=== PATIENT | female | born 1940 | race Caucasian/White ===

== ENCOUNTER 2018-06-07 15:26 | Inpatient (IN) | payer MEDICARE ==
[2018-06-07] MEDS ORDERED: SODIUM CHLORIDE 0.9% 1,000 ML IV STA (15:51)
[2018-06-07 16:12] LABS: Basophils % (A) 0 %; Eosinophils # (A) 0.1 k/uL (0-0.7); Eosinophils % (A) 1 %; HCT 41.8 % (34.0-46.0); HGB 13.5 gm/dL (11.4-16.0); Lymphocytes # (A) 1.3 k/uL (1.0-4.8); Lymphocytes % (A) 13 %; MCH 32.2 pg (25.0-35.0); MCHC 32.3 g/dL (31.0-37.0); MCV 99.8 fL (80.0-100.0); Mean Platelet Volume 7.2; Monocytes # (A) 0.5 k/uL (0-1.0); Monocytes % (A) 5 %; Neutrophils # (A) 8.1 k/uL (1.3-7.7); Neutrophils % (A) 80 %; Platelet Count 231 k/uL (150-450); RBC 4.19 m/uL (3.80-5.40); RDW 12.1 % (11.5-15.5); WBC 10.1 k/uL (3.8-10.6)
[2018-06-07 16:21] LABS: ALT 25 U/L (9-52); AST 28 U/L (14-36); Albumin 3.4 g/dL (3.5-5.0); Alkaline Phosphatase 81 U/L (38-126); Anion Gap 8 mmol/L; Blood Urea Nitrogen 16 mg/dL (7-17); Calcium 9.1 mg/dL (8.4-10.2); Carbon Dioxide 23 mmol/L (22-30); Chloride 110 mmol/L (98-107); Glucose 102 mg/dL (74-99); Potassium 3.9 mmol/L (3.5-5.1); Sodium 141 mmol/L (137-145); Total Bilirubin 0.8 mg/dL (0.2-1.3); Total Protein 6.5 g/dL (6.3-8.2)
--- NOTE | 2018-06-07 16:23 | ED ---
General Adult HPI - General Chief complaint: Extremity Injury, Lower Stated complaint: Left Hip FX Time Seen by Provider: 06/07/18 15:42 Source: EMS, RN notes reviewed Mode of arrival: EMS Limitations: physical limitation - History of Present Illness Initial comments: Patient 77-year-old female presented to the emergency room today with a chief complaint of left-sided hip fracture. She does admit that this morning she was over in [place] she was at a beach and she was taking some pictures. She went to step down onto the beach level from a deck and she lost her balance causing her to fall on the left side. She denies any head injury or loss consciousness. She does admit that she was experiencing pain to the left hip after the fall. Was taken to a local hospital and had an x-ray obtained showing a hip fracture. Patient states that she lives in [place], [place] and has [employer] was worried that her insurance may not cover treatment in [place] and requested to be transferred back here to the [facility]. Patient denies any other complaints or symptoms. She states pain is currently 0/10. Does admit that she was given morphine by EMS. Patient denies any recent fever, chills, shortness of breath, chest pain, back pain, abdominal pain, nausea or vomiting, numbness or tingling, headaches or visual changes, or any other complaints. - Related Data Allergies Allergy/AdvReac Type Severity Reaction Status Date / Time Penicillins AdvReac Rash/Hives Verified 06/07/18 15:41 Review of Systems ROS Statement: Those systems with pertinent positive or pertinent negative responses have been documented in the HPI. ROS Other: All systems not noted in ROS Statement are negative. Past Medical History Past Medical History: Hypertension History of Any Multi-Drug Resistant Organisms: None Reported Past Surgical History: Appendectomy, Cholecystectomy, Hernia Repair Additional Past Surgical History / Comment(s): meningioma removed from brain- 1995 Past Psychological History: No Psychological Hx Reported Smoking Status: Never smoker Past Alcohol Use History: Occasional Past Drug Use History: None Reported General Exam - General Exam Comments Initial Comments: General: The patient is awake and alert, in no distress, and does not appear acutely ill. Eye: Pupils are equal, round and reactive to light. Extra-ocular movements are intact. No nystagmus. There is normal conjunctiva bilaterally. No signs of icterus. Ears, nose, mouth and throat: There are moist mucous membranes and no oral lesions. Neck: The neck is supple, there is no tenderness or JVD. Cardiovascular: There is a regular rate and rhythm. No murmur, rub or gallop is appreciated. Respiratory: Lungs are clear to auscultation, respirations are non-labored, breath sounds are equal. No wheezes, stridor, rales, or rhonchi. Musculoskeletal: Normal ROM. Sensation intact. Pulses equal bilaterally 2+. Neurological: A&O x 3. CN II-XII intact, There are no obvious motor or sensory deficits. Coordination appears grossly intact. Speech is normal. Skin: Skin is warm and dry and no rashes or lesions are noted. Psychiatric: Cooperative, appropriate mood & affect, normal judgment. Limitations: physical limitation Course Vital Signs 06/07/18 15:32 Temperature 97.9 F Pulse Rate 89 Respiratory 18 Rate Blood Pressure 164/74 O2 Sat by Pulse 98 Oximetry Medical Decision Making - Medical Decision Making Patient's imaging reviewed and does show a left hip fracture intertrochanteric with an avulsion of the lesser trochanter. Case is discussed with orthopedic physician food and beverage assistant manager) on-call who will accept the admission for Dr. Velez. Hospice will be consult to them patient will remain nothing by mouth after midnight for possible surgery tomorrow morning. - Lab Data Result diagrams: 06/07/18 16:04 06/07/18 16:04 Lab Results 06/07/18 06/07/18 Range/Units 16:04 16:04 WBC 10.1 (3.8-10.6) k/uL RBC 4.19 (3.80-5.40) m/uL Hgb 13.5 (11.4-16.0) gm/dL Hct 41.8 (34.0-46.0) % MCV 99.8 (80.0-100.0) fL MCH 32.2 (25.0-35.0) pg MCHC 32.3 (31.0-37.0) g/dL RDW 12.1 (11.5-15.5) % Plt Count 231 (150-450) k/uL Neutrophils % 80 % Lymphocytes % 13 % Monocytes % 5 % Eosinophils % 1 % Basophils % 0 % Neutrophils # 8.1 H (1.3-7.7) k/uL Lymphocytes # 1.3 (1.0-4.8) k/uL Monocytes # 0.5 (0-1.0) k/uL Eosinophils # 0.1 (0-0.7) k/uL Basophils # 0.0 (0-0.2) k/uL Sodium 141 (137-145) mmol/L Potassium 3.9 (3.5-5.1) mmol/L Chloride 110 H (98-107) mmol/L Carbon Dioxide 23 (22-30) mmol/L Anion Gap 8 mmol/L BUN 16 (7-17) mg/dL Creatinine 0.61 (0.52-1.04) mg/dL Est GFR (CKD-EPI)AfAm >90 (>60 ml/min/1.73 sqM) Est GFR (CKD-EPI)NonAf 87 (>60 ml/min/1.73 sqM) Glucose 102 H (74-99) mg/dL Calcium 9.1 (8.4-10.2) mg/dL Total Bilirubin 0.8 (0.2-1.3) mg/dL AST 28 (14-36) U/L ALT 25 (9-52) U/L Alkaline Phosphatase 81 (38-126) U/L Total Protein 6.5 (6.3-8.2) g/dL Albumin 3.4 L (3.5-5.0) g/dL Disposition Clinical Impression: Hip fracture Disposition: ADMITTED IP TO THIS HOSP Condition: Good Is patient prescribed a controlled substance at d/c from ED?: No Referrals: Nonstaff,Physician [Primary Care Provider] - 1-2 days Time of Disposition: 17:02
[2018-06-07] MEDS ORDERED: ONDANSETRON 4 MG/2 ML VIAL IVP PRN (17:02)
[2018-06-07] MEDS ORDERED: ACETAMINOPHEN TAB 325 MG TAB PO PRN (17:02)
[2018-06-07] MEDS ORDERED: NALOXONE 0.4 MG/ML 1 ML VIAL IV PRN (17:02)
[2018-06-07 17:25] LABS: Prothrombin Time 9.8 sec (9.0-12.0)
[2018-06-07 17:36] LABS: Partial Thromboplastin Time 21.4 sec (22.0-30.0)
[2018-06-07] MEDS: HYDROmorphone 1 MG/ML 1 ML SYRINGE IVP PRN ×2 (19:04→22:03)
--- NOTE | 2018-06-07 19:24 | P.HPOR ---
History of Present Illness H&P Date: 06/07/18 Chief Complaint: Left hip fracture Patient is a 77-year-old female who was transferred to [facility] from a hospital in [facility]. Patient was visiting the area, she is a resident of [facility]. She states that she was out in the beach taking pictures, where she tripped and fell onto her left hip. She had immediate pain, she was unable to weight-bear. She was taken to the hospital initially in [facility], imaging test were done. Images demonstrated a left intertrochanteric hip fracture. Due to the patient's medical insurance, she requested to be transferred over to [facility] for further treatment. I was contacted by the emergency room staff first [facility] regarding this patient , I then spoke with the emergency room physician from [facility]. Dr. Velez at the attending position accepted the transfer. Internal medicine was then consult for medical clearance. Patient was evaluated today on the [facility] floor after being transferred. She is resting comfortably. She does have a family member with her. Pain in the left hip is reproduced with movement. She notes no discomfort of the right lower extremity, right upper extremity. She does have a recent history of a left wrist fracture, there is a brace intact. She notes no acute pain involving the left wrist at this time. She denies any new onset cervical, thoracic or lumbar pain. Patient denies any headaches, lightheadedness, shortness of breath, chest pain, abdominal discomfort, fever chills. Review of Systems Constitutional: Reports as per HPI Past Medical History Past Medical History: Hypertension History of Any Multi-Drug Resistant Organisms: None Reported Past Surgical History: Appendectomy, Cholecystectomy, Hernia Repair Additional Past Surgical History / Comment(s): meningioma removed from brain- 1995 Past Psychological History: No Psychological Hx Reported Smoking Status: Never smoker Past Alcohol Use History: Occasional Past Drug Use History: None Reported Medications and Allergies Home Medications Medication Instructions Recorded Confirmed Type Ascorbic Acid [Vitamin C] 500 mg PO DAILY 06/07/18 06/07/18 History Aspirin 325 mg PO DAILY 06/07/18 06/07/18 History Calcium Carbonate [Calcium] 1,200 mg PO DAILY 06/07/18 06/07/18 History Cholecalciferol (Vitamin D3) 2,000 unit PO DAILY 06/07/18 06/07/18 History [Vitamin D3] Hydrochlorothiazide 12.5 mg PO DAILY 06/07/18 06/07/18 History [place]-3 Fatty Acids/Fish Oil [Fish 1 cap PO DAILY 06/07/18 06/07/18 History Oil 1,000 mg Softgel] Selenium 200 mcg PO DAILY 06/07/18 06/07/18 History Ubidecarenone [Co Q-10] 400 mg PO DAILY 06/07/18 06/07/18 History Vitamin B Complex 1 cap PO DAILY 06/07/18 06/07/18 History Vitamin E (Dl,Tocopheryl Acet) 400 unit PO DAILY 06/07/18 06/07/18 History [Vitamin E] Allergies Allergy/AdvReac Type Severity Reaction Status Date / Time Penicillins AdvReac Rash/Hives Verified 06/07/18 17:16 Physical Examination Left lower extremity: Obvious shortening and external rotation noted of the hip She is unable to straight leg raise, logroll maneuver reproduces pain No tenderness with palpation surrounding the knee, foot or ankle She is tender to palpation over the greater trochanter and lateral hip region Calf is soft, no tenderness with palpation Plantar flexion, dorsiflexion, EHL, FHL are intact Sensory exam to light touch throughout the extremities intact, dorsal pedis pulses 2+ Results - Labs Labs: Abnormal Lab Results - Last 24 Hours (Table) 06/07/18 06/07/18 06/07/18 Range/Units 16:04 16:04 16:04 Neutrophils # 8.1 H (1.3-7.7) k/uL APTT 21.4 L (22.0-30.0) sec Chloride 110 H (98-107) mmol/L Glucose 102 H (74-99) mg/dL Albumin 3.4 L (3.5-5.0) g/dL H & H 06/07/18 Range/Units 16:04 Hgb 13.5 (11.4-16.0) gm/dL Hct 41.8 (34.0-46.0) % Coagulation 06/07/18 Range/Units 16:04 INR 1.0 (<1.2) Result Diagrams: 06/07/18 16:04 06/07/18 16:04 - Diagnostic results Hip x-ray: report reviewed, image reviewed Assessment and Plan Assessment: Imaging: Xrays were reviewed on [employer] system, 3 different views of the AP pelvis were taken. These images were done in [facility]. Images do demonstrate a minimally displaced left intertrochanteric hip fracture Assessment: 1. Left intertrochanteric femur fracture 2. Status post fall from standing Plan: I was able to discuss the case, including the physical exam findings and imaging studies my attending Dr. Velez. The plan is to proceed with a intramedullary nailing of the left intertrochanteric femur fracture. We would like to do this on 06/08/2018. Risks and benefits of the procedure were discussed the patient at bedside, she was made aware she revealed to discuss any further questions with Dr. Velez in the preoperative period. Obtain consent Nothing by mouth after midnight Nonweightbearing left lower extremity Pain control, continue use of oral and IV medication as needed GI and DVT prophylaxis, will likely begin subcu medication after surgery Medical clearance Further recommendations to follow after surgery Time with Patient: Less than 30
[2018-06-07 20:46] VITALS: BMI 28.1
--- NOTE | 2018-06-07 21:35 | P.HPIM ---
History of Present Illness H&P Date: 06/07/18 Chief Complaint: left hip fracture 77-year-old female with history of hypertension. Patient has sustained left hip fracture after falling this morning on the beach where she missed a step and ended up on the ground did not lose consciousness did not hit her head. She does not report any palpitations associated with the fall any dizziness lightheadedness or any weakness. After falling she realizes that she is having severe left hip pain could not move she was transported by ambulance to a local hospital in [place] where she was diagnosed with left intertrochanteric fracture for which she requested to be transferred to the [facility] to receive medical attention. Medicine was consult at for preop clearance and medical management. Patient denies any chest pain or trouble breathing denies any dizziness or lightheadedness denies any palpitations denies any abdominal pain nausea vomiting denies any changes in bowel habits urinary habits, denies any GI bleeding. Denies any focal neurologic deficits. Review of Systems Pertinent positives as noted in HPI. All other systems were reviewed and are negative Past Medical History Past Medical History: Hypertension History of Any Multi-Drug Resistant Organisms: None Reported Past Surgical History: Appendectomy, Cholecystectomy, Hernia Repair Additional Past Surgical History / Comment(s): meningioma removed from brain- 1995 Past Psychological History: No Psychological Hx Reported Smoking Status: Never smoker Past Alcohol Use History: Occasional Past Drug Use History: None Reported - Past Family History Father Family Medical History: Cancer Mother Family Medical History: Cancer Medications and Allergies Home Medications Medication Instructions Recorded Confirmed Type Ascorbic Acid [Vitamin C] 500 mg PO DAILY 06/07/18 06/07/18 History Aspirin 325 mg PO DAILY 06/07/18 06/07/18 History Calcium Carbonate [Calcium] 1,200 mg PO DAILY 06/07/18 06/07/18 History Cholecalciferol (Vitamin D3) 2,000 unit PO DAILY 06/07/18 06/07/18 History [Vitamin D3] Hydrochlorothiazide 12.5 mg PO DAILY 06/07/18 06/07/18 History [place]-3 Fatty Acids/Fish Oil [Fish 1 cap PO DAILY 06/07/18 06/07/18 History Oil 1,000 mg Softgel] Selenium 200 mcg PO DAILY 06/07/18 06/07/18 History Ubidecarenone [Co Q-10] 400 mg PO DAILY 06/07/18 06/07/18 History Vitamin B Complex 1 cap PO DAILY 06/07/18 06/07/18 History Vitamin E (Dl,Tocopheryl Acet) 400 unit PO DAILY 06/07/18 06/07/18 History [Vitamin E] Allergies Allergy/AdvReac Type Severity Reaction Status Date / Time Penicillins AdvReac Rash/Hives Verified 06/07/18 17:16 Physical Exam Vitals: Vital Signs Temp Pulse Pulse Resp BP BP Pulse Ox 06/07/18 19:49 98.6 F 78 16 166/74 99 06/07/18 18:18 151/61 06/07/18 18:15 79 18 97 06/07/18 15:32 97.9 F 89 18 164/74 98 Intake and Output 06/07/18 06/07/18 06/07/18 06:59 14:59 22:59 Output Total 300 Balance -300 Output: Urine 300 Uretheral (Lizama) 300 Other: Weight 81.647 kg Constitutional: No acute distress, conversant, pleasant, well developed Eyes: Anicteric sclerae, moist conjunctiva, no lid-lag Pupils equal round reactive to light ENMT: NC/AT Oropharynx clear, no erythema, or exudates Neck: Supple, FROM, no masses, or JVD No carotid bruits No thyromegaly Lungs: Clear to auscultation Clear to percussion Normal respiratory effort, no accessory muscle use Cardiovascular: Heart regular in rate and rhythm, No murmurs, gallops, or rubs No peripheral edema Abdominal: Soft Nontender, no guarding, rebound or rigidity Abdomen moving with respiration Normoactive bowel sounds No hepatomegaly, No splenomegaly No palpable mass No abdominal wall hernia noted Skin: Normal temperature, tone, texture, turgor No induration No subcutaneous nodules No rash, lesions No ulcers Extremities: No digital cyanosis No clubbing Pedal pulses intact and symmetrical Radial pulses intact and symmetrical No calf tenderness Psychiatric: Alert and oriented to person, place and time Appropriate affect fair judgment Neuro Muscles Strength 5/5 in all 4 extremities except for limited exam over left lower extremity due to fear of pain in the left hip Sensation to light touch grossly present throughout Cranial nerves II-XII grossly intact No focal sensory deficits Lymphatics: no palpable cervical or supraclavicular , or inguinal lymph nodes Results CBC & Chem 7: 06/07/18 16:04 06/07/18 16:04 Labs: Abnormal Lab Results - Last 24 Hours (Table) 06/07/18 06/07/18 06/07/18 Range/Units 16:04 16:04 16:04 Neutrophils # 8.1 H (1.3-7.7) k/uL APTT 21.4 L (22.0-30.0) sec Chloride 110 H (98-107) mmol/L Glucose 102 H (74-99) mg/dL Albumin 3.4 L (3.5-5.0) g/dL Thrombosis Risk Factor Assmnt - Choose All That Apply Any of the Below Risk Factors Present?: Yes Each Factor Represents 1 point: Medical pt on bed rest Each Risk Factor Represents 2 Points: Major surgery Each Risk Factor Represents 3 Points: Age 75 years or older Each Risk Factor Represents 5 Points: Hip, pelvis, or leg fracture (< 1 month) Thrombosis Risk Factor Assessment Total Risk Factor Score: 11 Thrombosis Risk Factor Assessment Level: High Risk Assessment and Plan Assessment: patient is 77year old Female with history of hypertension, presetned with left hip pain found to have left intertrochanteric fracture after sustaining a mechanical fall this morning. Patient denies any recent history or symptoms of congestive heart failure, mycardial infarction, syncope, arrhythmia, palpitation , or exertional dyspnea. Patient denies any past medical history of stroke, CAD , CHF, CKD, or DM. Patient is functional at baseline at >4 METs she works out on regular basis, and walks miles and miles every day. Patient labs reviewed, EKG unremarkable. Patient is scheduled for orthopedic surgery to fix left hip fracture. This is of moderate risk, however, patient has no medical risk factors from her past medical history. Patient can proceed to surgery with low-moderate but acceptable perioperative cardiovascular risk . This has been explained to the patient , all questions answered, patient verbalized understanding and agreement. Plan: Left hip intertrochanteric fracture secondary to mechanical fall Pain control and DVT prophylaxis per orthopedics Plan for surgical intervention in the morning Nothing by mouth after midnight Hypertension currently controlled Hydrochlorothiazide on hold, resume postop DVT prophylaxis per orthopedic recommendations Check labs postoperatively CBC and BMP Patient can proceed to surgery with low-moderate but acceptable perioperative cardiovascular risk Thank you for allowing us to participate in the care of this patient. Do not hesitate to contact us with questions. Someone can be reached from the [facility] hospitalist group at all hours of the day at [phone].
[2018-06-08] MEDS: HYDROmorphone 1 MG/ML 1 ML SYRINGE IVP PRN ×4 (02:14→15:06)
[2018-06-08] MEDS ORDERED: ALPRAZolam 0.5 MG TAB PO STA (04:02)
[2018-06-08] MEDS ORDERED: PHENYLEPHRINE-0.9% NACL SYG 1 MG/10 ML SYRINGE ONE (09:33)
[2018-06-08] MEDS ORDERED: IV FLUID CONTINUATION 1,000 ML IV ONE (09:33)
[2018-06-08] MEDS ORDERED: KETAMINE 10 MG/ML 20 ML VIAL ONE (09:33)
[2018-06-08] MEDS ORDERED: MIDAZOLAM 2 MG/2 ML VIAL ONE (09:33)
[2018-06-08] MEDS ORDERED: SODIUM CHLORIDE 0.9% 50 ML with ceFAZolin 2,000 MG IV ONE ×2 (10:01)
[2018-06-08] MEDS ORDERED: ceFAZolin 1,000 MG in SODIUM CHLORIDE 0.9% 1,000 ML IRRIGATION ONE (10:19)
--- NOTE | 2018-06-08 11:04 | XR ---
FLUOROSCOPY 1 minute and 25 seconds of fluoroscopy time were utilized during internal fixation of the left hip. 2 images document the procedure.
[2018-06-08] MEDS ORDERED: HYDROcodone/APAP 5-325MG 1 EACH TAB PO PRN (11:05)
[2018-06-08] MEDS ORDERED: HYDROmorphone 1 MG/ML 1 ML SYRINGE IVP PRN (11:05)
[2018-06-08] MEDS ORDERED: MAGNESIUM HYDROXIDE 2,400 MG/10 ML CUP PO PRN (11:05)
--- NOTE | 2018-06-08 11:14 | P.OP ---
Date of Procedure: 06/08/18 Preoperative Diagnosis: Intertrochanteric fracture left hip Postoperative Diagnosis: Same Procedure(s) Performed: Trochanteric nailing left hip Implants: Synthes 11 mm 130 TFNA 170 mm trochanteric nail with a 100 mm helical blade and a 40 mm distal locking screw Anesthesia: spinal Surgeon: Abdiel Velez Production Laborer #1: Iron Silverio Estimated Blood Loss (ml): 50 Pathology: none sent Condition: stable Disposition: PACU Indications for Procedure: 77-year-old lady seen with a displaced left hip intertrochanteric fracture. I recommended intramedullary nailing. The procedure, risks, complications and recovery were discussed the patient. The patient was agreeable. Consent was obtained. The patient received preoperative medical clearance. Operative Findings: see description of procedure Description of Procedure: The patient was taken to the operative suite. The patient received preoperative IV antibiotics. The patient underwent a spinal anesthetic by the department of anesthesia. The patient was then transferred to the fracture table. The left lower extremity was placed in standard traction with internal rotation and adduction. The right lower extremity placed in well-padded leg scott. C-arm was brought in and the fracture was reduced into a satisfactory position. The C-arm was now pulled back. The left hip was now prepped and draped in the normal sterile orthopedic fashion. An incision was now made proximal to the greater trochanter sharply through skin. Dissection was taken down to the tip of the trochanter. With the assistance of Cyrus HERR retracting I introduced a guidewire and adequate alignment was noted both under AP and lateral intraoperative imaging. We then placed our initial proximal reamer over the guidewire. We then chose the appropriate size and length trochanteric nail. This is introduced and tapped down until appropriate positioning was noted via fluoroscopy. We now introduced our guide for the helical blade. An incision was made and the guide was placed down right to the lateral aspect of the proximal femur. A guidewire was introduced into the head neck complex while Cyrus HERR held the outrigger in the appropriate position. I confirmed good position under AP and lateral intraoperative imaging. Reaming was performed over the guidewire. An appropriate length helical blade was now inserted. The setscrew was now locked into position proximally and then we took one turn off to allow for dynamization. We now introduced our cannula for distal locking screw. An incision was made and the cannula was inserted until contact was made to the lateral proximal femur. A drill hole was made. This was depth gauge. An appropriate length distal locking screw was inserted with good bite and purchase noted. We now remove the entire outrigger construct. We reviewed the entire construct under AP and the lot lateral intraoperative imaging and noted excellent reduction and maintenance of the fracture good position of all the hardware. Spot films were obtained to document this. The wound was irrigated with antibiotic solution solution. Subcu cyst soft tissues were approximated 2-0 Vicryl. The skin was approximated with skin jeffrey. Sterile dressings were applied. The patient was awakened, transferred to a bed and recovery stable condition. Cyrus HERR assisted the procedure.
[2018-06-08 12:13] LABS: Basophils % (A) 0 %; Eosinophils % (A) 0 %; HGB 11.1 gm/dL (11.4-16.0); Lymphocytes # (A) 0.9 k/uL (1.0-4.8); Lymphocytes % (A) 8 %; MCH 32.6 pg (25.0-35.0); MCHC 31.8 g/dL (31.0-37.0); MCV 102.5 fL (80.0-100.0); Macrocytosis Slight; Mean Platelet Volume 7.4; Monocytes # (A) 0.5 k/uL (0-1.0); Monocytes % (A) 5 %; Neutrophils % (A) 85 %; Platelet Count 210 k/uL (150-450); RBC 3.42 m/uL (3.80-5.40); RDW 12.2 % (11.5-15.5); WBC 10.5 k/uL (3.8-10.6)
[2018-06-08] MEDS: ceFAZolin IN SWFI 2 GM/20 ML SYRINGE IVP SCH ×2 (15:12→23:45)
--- NOTE | 2018-06-08 17:05 | P.PN ---
Subjective Progress Note Date: 06/08/18 The patient seen and examined at the bedside. The patient endorsed 3/10 L hip pain but is otherwise free of active complaints. Denied chest pain, SOB, nausea , vomiting, fever, chills, or abdominal pain. Objective - Vital Signs Vital signs: Vital Signs Temp 97.0 F L 06/08/18 11:05 Pulse 66 06/08/18 11:20 Resp 20 06/08/18 11:20 BP 141/66 06/08/18 11:20 Pulse Ox 98 06/08/18 11:20 Intake & Output 06/07/18 06/08/18 06/08/18 18:59 06:59 18:59 Intake Total 1001 Output Total 300 300 380 Balance -300 -300 621 Weight 81.647 kg 81.647 kg Intake: IV 851 Oral 150 Output: Urine 300 300 330 Uretheral (Lizama) 300 250 Estimated Blood Loss 50 Other: Voiding Method Indwelling Catheter Indwelling Catheter - Exam General: Non-toxic, in no acute distress HEENT: NC/AT, anicteric sclerae, moist conjunctiva, no lid-lag, PERRLA, oropharynx clear, no erythema, exudates Cardiovascular: S1/S2 wnl, no murmurs, rubs, or gallops Lungs: Clear to auscultation, normal respiratory effort, no accessory muscle use Abdominal: Soft, nontender, non-distended, no guarding, rebound, or rigidity, normoactive bowel sounds Skin: Warm, dry Extremities: No edema or contractures, L hip dressing in place, clean, dry Psychiatric: Alert and oriented to person, place and time, appropriate affect, Intact judgment Neuro: CN II-XII grossly intact, no focal motor deficits - Labs CBC & Chem 7: 06/08/18 11:42 06/07/18 16:04 Labs: Abnormal Lab Results - Last 24 Hours (Table) 06/07/18 06/08/18 Range/Units 16:04 11:42 RBC 3.42 L (3.80-5.40) m/uL Hgb 11.1 L (11.4-16.0) gm/dL MCV 102.5 H (80.0-100.0) fL Neutrophils # 9.0 H (1.3-7.7) k/uL Lymphocytes # 0.9 L (1.0-4.8) k/uL APTT 21.4 L (22.0-30.0) sec Assessment and Plan Plan: L hip intertrochanteric fracture s/p trochanteric nailing - Pain control w/ [place] 5 and Dilaudid - As per orthopedic surgery HTN - Controlled. Will resume HCTZ 12.5 mg qd. DVT proph -As per Orthopedic recommendations
[2018-06-08] MEDS: SENNOSIDES-DOCUSATE SODIUM 1 EACH TAB PO SCH (20:23)
[2018-06-09] MEDS: HYDROCHLOROTHIAZIDE 12.5 MG CAP PO SCH (08:26)
[2018-06-09] MEDS ORDERED: MORPHINE SULFATE 2 MG/ML SYRINGE IVP PRN (09:38)
--- NOTE | 2018-06-09 09:55 | P.PN ---
Subjective Progress Note Date: 06/09/18 Principal diagnosis: hip pain Past medical history of hypertension who presented in [place] ER after a fall. Found to have a left intertrochanteric fracture. She went for definitive operative repair on 06/08. Patient seen and examined at bedside. No chest pain, shortness of breath, nausea, vomiting, or diarrhea. Had an adverse reaction to Dilaudid with vomiting. Also vomited with [place]. Has tolerated morphine in the past. I will transition her IV pain medications to morphine and encouraged her to retry [place]. She complains of hallucinations when she received IV ketamine. I have asked her to add this to her adverse reactions list but have reassured her that hallucinations can be a side effect from ketamine. Objective - Vital Signs Vital signs: Vital Signs Temp 98.8 F 06/09/18 08:16 Pulse 80 06/09/18 08:16 Resp 16 06/09/18 08:16 BP 121/70 06/09/18 08:16 Pulse Ox 95 06/09/18 08:16 Intake & Output 06/08/18 06/09/18 06/09/18 18:59 06:59 18:59 Intake Total 1966 240 Output Total 625 150 Balance 1341 90 Intake: IV 851 Intake, IV Titration 725 Amount Sodium Chloride 0.9% 1, 725 000 ml @ 75 mls/hr IV . [id number] STA Rx#:[id number] Oral 390 240 Output: Urine 555 150 Uretheral (Lizama) 250 Emesis 20 Estimated Blood Loss 50 Other: Voiding Method Indwelling Catheter Indwelling Catheter Indwelling Catheter # Emeses 1 - Exam General: non toxic, no distress, appears younger than stated age Derm: warm, dry Head: atraumatic, normocephalic, symmetric Eyes: EOMI, no lid lag, anicteric sclera Mouth: no lip lesion, mucus membranes moist Cardiovascular: S1S2 reg, no murmur, positive posterior tibial pulse bilateral, Lungs: decreased breath sounds bilateral, no rhonchi, no rales , no accessory muscle use Abdominal: soft, nontender to palpation, no guarding, no appreciable organomegaly Ext: no gross muscle atrophy, no edema, no contractures Neuro: CN II-XI grossly intact, no focal neuro deficits Psych: Alert, oriented, appropriate affect - Labs CBC & Chem 7: 06/08/18 11:42 06/07/18 16:04 Labs: Abnormal Lab Results - Last 24 Hours (Table) 06/08/18 Range/Units 11:42 RBC 3.42 L (3.80-5.40) m/uL Hgb 11.1 L (11.4-16.0) gm/dL MCV 102.5 H (80.0-100.0) fL Neutrophils # 9.0 H (1.3-7.7) k/uL Lymphocytes # 0.9 L (1.0-4.8) k/uL Assessment and Plan Assessment: L hip fracture s/p IM nailing - pain control with dilaudid - DVT prophylaxis per ortho HTN, controlled - continue with HCTZ - stop IVF Acute blood anemia, as an anticipated outcome of surgery - follow CBC - suspect resolution overtime without intervention. Adverse reaction to ketamine, asked nurse to add it to allergy list as adverse reaction. DVT prophylaxis: Lovenox Discussed with: Patient Anticipated discharge: 24-[address]: [facility] A total of 25 minutes was spent on the care of this complex patient more than 50 % of the time was spent in counseling and care coordination.
[2018-06-09] MEDS: ENOXAPARIN 40 MG/0.4 ML SYRINGE SQ SCH (11:11)
[2018-06-09] MEDS: HYDROcodone/APAP 5-325MG 1 EACH TAB PO PRN ×2 (14:30→21:09)
--- NOTE | 2018-06-09 14:46 | P.PN ---
Subjective Progress Note Date: 06/09/18 Principal diagnosis: Status post intramedullary nailing left intertrochanteric femur fracture Patient is examined bedside today, she appears to be comfortable. She has ambulated with therapy. She denies any chest pain or shortness of breath. Objective - Vital Signs Vital signs: Vital Signs Temp 98.8 F 06/09/18 08:16 Pulse 80 06/09/18 08:16 Resp 16 06/09/18 08:16 BP 121/70 06/09/18 08:16 Pulse Ox 95 06/09/18 08:16 Intake & Output 06/08/18 06/09/18 06/09/18 18:59 06:59 18:59 Intake Total 1966 240 Output Total 675 768 1064 Balance 1341 90 -1800 Intake: IV 851 Intake, IV Titration 725 Amount Sodium Chloride 0.9% 1, 725 000 ml @ 75 mls/hr IV . [id number] STA Rx#:[id number] Oral 390 240 Output: Urine 860 051 7056 Uretheral (Lizama) 250 1800 Emesis 20 Estimated Blood Loss 50 Other: Voiding Method Indwelling Catheter Indwelling Catheter Indwelling Catheter # Emeses 1 - Exam Left lower extremity: Incision is clean, dry, and intact. Shaq are in good position. There is minimal soft tissue swelling and ecchymosis surrounding the medial and lateral aspects of the incision. Calf is soft, no tenderness with palpation. Plantar flexion, dorsiflexion, EHL, FHL are intact. Sensory exam to light touch throughout the extremity is intact, dorsal pedis pulses 2+. - Labs CBC & Chem 7: 06/08/18 11:42 06/07/18 16:04 Assessment and Plan Plan: Assessment: Postop day #1 status post intramedullary nailing left intertrochanteric femur fracture Plan: Continue weight-bear as tolerated Pain control, utilize oral medication as needed GI and DVT prophylaxis, continue Lovenox during inpatient stay Daily dressing changes Continue work physical therapy Encourage incentive spirometer Medical recommendations Discharge planning: Patient hopeful discharged tomorrow to rehab Time with Patient: Less than 30
[2018-06-09] MEDS: SENNOSIDES-DOCUSATE SODIUM 1 EACH TAB PO SCH (21:09)
[2018-06-10 07:10] VITALS: BP 131/70; PULSE 74; RESP 15; TEMP 98
[2018-06-10] MEDS: HYDROCHLOROTHIAZIDE 12.5 MG CAP PO SCH (08:37)
[2018-06-10] MEDS: ENOXAPARIN 40 MG/0.4 ML SYRINGE SQ SCH (08:38)
--- NOTE | 2018-06-10 08:57 | P.PN ---
Subjective Progress Note Date: 06/10/18 Principal diagnosis: Left hip pain Patient was seen and examined. No acute events overnight. Patient reports working with PT. Pain is 0 out of 10 at rest, 4 out of 10 with exertion. Patient reports passing gas, had a bowel movement this morning. She urinates fine. She has no complaints today. Looking forward to going home. She denies any chest pain, shortness of breath, palpitations. Objective - Vital Signs Vital signs: Vital Signs Temp 98 F 06/10/18 07:09 Pulse 74 06/10/18 07:09 Resp 15 06/10/18 07:09 BP 131/70 06/10/18 07:09 Pulse Ox 98 06/10/18 07:09 Intake & Output 06/09/18 06/10/18 06/10/18 18:59 06:59 18:59 Intake Total 500 500 240 Output Total 2400 Balance -1900 500 240 Intake: Oral 500 500 240 Output: Urine 2400 Uretheral (Lizama) 2400 Other: Voiding Method Indwelling Catheter # Voids 1 1 - Exam General: [non toxic], [no distress], [appears at stated age] Derm: [warm], [dry] Head: [atraumatic], [normocephalic], [symmetric] Eyes: [EOMI], [no lid lag], [anicteric sclera] Mouth: [no lip lesion], [mucus membranes moist] Cardiovascular: [S1S2 reg], [+ systolic murmur], [No rubs or gallops] Lungs: [CTA bilateral], [no rhonchi, no rales] , [no accessory muscle use] Abdominal: [soft], [ nontender to palpation], [no guarding], [no appreciable organomegaly] Ext: [no gross muscle atrophy], [no edema], [left hip tender to palpation, slightly swollen - dressings intact without strikethrough] Neuro: [ CN II-XI grossly intact], [no focal neuro deficits] Psych: [Alert], [oriented], [appropriate affect] - Labs CBC & Chem 7: 06/08/18 11:42 06/07/18 16:04 Assessment and Plan Assessment: Assessment and Plan 1. L hip pain: POD2 s/p IM nailing of intertrochanteric femoral Fx. Pain management with Tylenol 650 mg PO Q6H PRN, [place] 5 Q6H PRN, Morphine IV for breakthrough. Bowel regimen with Milk of Mag PRN, and SenokotS 2 tab PO QHS. Weight bearing as per Orthopedic recommedations. Hopeful transfer to rehab. FU Orthopedic Sx, PT/OT 2. Anemia: Acute, in the setting of Sx. Hg 11.1 Hct 35 MCV 102.5. FU CBC in the afternoon 3. HTN: BP 131/70. Continue HCTZ 12.5 mg PO QD. Monitor vitals, adjust medication as necessary. 4. DVT/GI Prophylaxis: Lovenox 40 mg SUBCUT QD.
--- NOTE | 2018-06-10 10:46 | P.PN ---
Subjective Progress Note Date: 06/10/18 Principal diagnosis: Status post intramedullary nailing left intertrochanteric femur fracture Patient is examined bedside today, she appears to be comfortable. She has ambulated with therapy. She denies any chest pain or shortness of breath. Objective - Vital Signs Vital signs: Vital Signs Temp 98 F 06/10/18 07:09 Pulse 74 06/10/18 07:09 Resp 15 06/10/18 07:09 BP 131/70 06/10/18 07:09 Pulse Ox 98 06/10/18 07:09 Intake & Output 06/09/18 06/10/18 06/10/18 18:59 06:59 18:59 Intake Total 500 500 240 Output Total 2400 Balance -1900 500 240 Intake: Oral 500 500 240 Output: Urine 2400 Uretheral (Lizama) 2400 Other: Voiding Method Indwelling Catheter # Voids 1 1 - Exam Left lower extremity: Incision is clean, dry, and intact. Shaq are in good position. There is minimal soft tissue swelling and ecchymosis surrounding the medial and lateral aspects of the incision. Calf is soft, no tenderness with palpation. Plantar flexion, dorsiflexion, EHL, FHL are intact. Sensory exam to light touch throughout the extremity is intact, dorsal pedis pulses 2+. - Labs CBC & Chem 7: 06/08/18 11:42 06/07/18 16:04 Assessment and Plan Assessment: Assessment: 1. Status post intramedullary nailing left intertrochanteric femur fracture 2. Status post fall from standing Plan: Patient continues to improve, also discharged to rehab today Patient lives in [place], we'll reschedule follow-up with our services in 3-4 weeks, she may follow up with an orthopedic doctor in her own home town Pain control, we'll discharge on oral medications GI and DVT prophylaxis, aspirin 325 mg twice a day for 1 month Dressing changes daily, wound care instructions were discussed with patient Medical recommendations Discharge planning: Hopeful discharge to rehab today Plan: Assessment: Postop day #1 status post intramedullary nailing left intertrochanteric femur fracture Plan: Continue weight-bear as tolerated Pain control, utilize oral medication as needed GI and DVT prophylaxis, continue Lovenox during inpatient stay Daily dressing changes Continue work physical therapy Encourage incentive spirometer Medical recommendations Discharge planning: Patient hopeful discharged tomorrow to rehab Time with Patient: Less than 30
[2018-06-10 11:29] LABS: Basophils % (A) 0 %; Eosinophils # (A) 0.1 k/uL (0-0.7); Eosinophils % (A) 1 %; Lymphocytes % (A) 11 %; MCH 33.5 pg (25.0-35.0); MCHC 33.4 g/dL (31.0-37.0); MCV 100.3 fL (80.0-100.0); Mean Platelet Volume 7.6; Monocytes # (A) 0.6 k/uL (0-1.0); Monocytes % (A) 7 %; Neutrophils # (A) 7.1 k/uL (1.3-7.7); Neutrophils % (A) 80 %; Platelet Count 191 k/uL (150-450); RBC 2.99 m/uL (3.80-5.40); RDW 12.1 % (11.5-15.5); WBC 8.9 k/uL (3.8-10.6)
--- NOTE | 2018-06-10 14:14 | P.DS ---
Providers Date of admission: 06/07/18 17:03 Expected date of discharge: 06/10/18 Attending physician: Abdiel Velez Consults: 06/07/18 17:02 Consult Physician Stat Consulting Provider: Darlyn Greer Consult Reason/Comments: medical clearance for surgery Do you want consulting provider notified?: Yes Primary care physician: Physician Nonstaff Hospital Course: Date of admission: 06/07/2018 Date of discharge: 06/10/2018 Admission diagnosis: Intertrochanteric left femur fracture Discharge diagnosis: status post intramedullary nailing left intertrochanteric femur fracture Attending physician: Dr. Velez Surgical procedures: intramedullary nailing left intertrochanteric femur fracture Brief history: Patient is a 77-year-old female who was transferred from a hospital in [facility] to [facility] on 06/07/2018 after sustaining a left proximal femur fracture. She is a resident of [place], [place], she elected to be transferred for further medical care. Initially was contacted by the emergency room staff to [facility] regarding a possible transfer, I discussed the case with the ER physician in [place], we did except to transfer. Proper consults were placed for clearance. Patient was scheduled for surgery on 06/08/2018. Hospital course: Details of patient's surgery can be found in operative report. Patient tolerated the procedure well and was subsequently transported to orthopedic floor. Patient's orthopeidc and medical care was provided daily. Patient had daily laboratory tests performed for evaluation of overall blood counts . Patient had daily physical therapy to include strengthening range of motion as well as education with walker ambulation. Patient was treated with Lovenox for their postoperative DVT prophylaxis during their inpatient stay. Patient was noted to have a relatively uneventful postoperative course. Patient reported satisfactory pain control with oral pain medications by postoperative day 0. Patient showed satisfactory progress with physical therapy. Patient moved steadily through the program and had no difficulty meeting the goals by postoperative day 2. Given patient's otherwise satisfactory course and having met physical therapy goals, plan is to discharge patient rehab on postoperative day 2. Discharge condition/disposition: Patient will be discharged to rehab in stable condition. Discharge medications: Instructions are given on resumption of patient's normal daily medications per primary care recommendation, in addition patient will be prescribed . Discharge instructions: 1. Wound care and infection precautions, keep incision dry and covered while showering, no lotions, creams, moisturizers. No soaking, tubs, pools, hottubs. Do not scrub over the incision. 2. Weight-bear as tolerated with walker / cane until follow-up. 3. Ice and elevate when necessary. Do not exceed 20 minutes per hour with ice pack. 4. Utilize compression sleeve until seen at first follow up appointment. 5. Visiting nursing care. 6. Home physical therapy 7. Pain meds and anticoagulants per prescription. 8. Pain medication has potential to cause constipation. Increase oral fluid and fiber intake. Contact primary care provider if you have not had a bowel movement within 48 hours after discharge 9. No anti-inflammatory medication until discussed at first post operative visit, this including Motrin, Aleve, Mobic, Diclofenac 10. Follow up in office at 2 weeks postop with Cyrus Silverio PA-C 11. Follow up with your primary care doctor 7-10 days after discharge. 12. Contact [facility] with any questions, . Procedures: Intramedullary nailing left intertrochanteric femur fracture Patient Condition at Discharge: Good Plan - Discharge Summary Discharge Rx Participant: Yes New Discharge Prescriptions: New Aspirin 325 mg PO BID #60 tab Hydrocodone/Acetaminophen [[place] 5-325] 1 - 2 each PO Q6HR PRN #40 tab PRN Reason: Pain No Action Ascorbic Acid [Vitamin C] 500 mg PO DAILY Calcium Carbonate [Calcium] 1,200 mg PO DAILY Cholecalciferol (Vitamin D3) [Vitamin D3] 2,000 unit PO DAILY Hydrochlorothiazide 12.5 mg PO DAILY [place]-3 Fatty Acids/Fish Oil [Fish Oil 1,000 mg Softgel] 1 cap PO DAILY Selenium 200 mcg PO DAILY Ubidecarenone [Co Q-10] 400 mg PO DAILY Vitamin B Complex 1 cap PO DAILY Vitamin E (Dl,Tocopheryl Acet) [Vitamin E] 400 unit PO DAILY Aspirin 325 mg PO DAILY Discharge Medication List Ascorbic Acid [Vitamin C] 500 mg PO DAILY 06/07/18 [History] Calcium Carbonate [Calcium] 1,200 mg PO DAILY 06/07/18 [History] Cholecalciferol (Vitamin D3) [Vitamin D3] 2,000 unit PO DAILY 06/07/18 [History] Hydrochlorothiazide 12.5 mg PO DAILY 06/07/18 [History] [place]-3 Fatty Acids/Fish Oil [Fish Oil 1,000 mg Softgel] 1 cap PO DAILY [History] Selenium 200 mcg PO DAILY 06/07/18 [History] Ubidecarenone [Co Q-10] 400 mg PO DAILY 06/07/18 [History] Vitamin B Complex 1 cap PO DAILY 06/07/18 [History] Vitamin E (Dl,Tocopheryl Acet) [Vitamin E] 400 unit PO DAILY 06/07/18 [History] Aspirin 325 mg PO BID #60 tab 06/10/18 [Rx] Hydrocodone/Acetaminophen [[place] 5-325] 1 - 2 each PO Q6HR PRN #40 tab 06/10/18 [Rx] Follow up Appointment(s)/Referral(s): Nonstaff,Physician [Primary Care Provider] - 1-2 days Iron Silverio, PAC [PHYSICIAN CASHIER ASSISTANT] - 4 Weeks Activity/Diet/Wound Care/Special Instructions: Orthopedic Discharge Instructions: 1. Wound care and infection precautions, keep incision dry and covered while showering, no lotions, creams, moisturizers. No soaking, pools, hot tubs. Do not scrub over incision. 2. Weight-bear as tolerated with walker / cane until follow-up. 3. Ice and elevate when necessary. Do not exceed 20 minutes per hour with ice pack. 4. Utilize compression sleeve until seen at first follow up appointment. 5. Pain meds and anticoagulants per prescription. 6. Pain medication has potential to cause constipation. Increase oral fluid and fiber intake. Contact primary care provider if you have not had a bowel movement within 48 hours after discharge. 7. No anti-inflammatory medication until discussed at first post operative visit, this including Motrin, Aleve, Mobic, Diclofenac. 8. Follow up in office at 2 weeks postop with Cyrus Silverio PA-C 9. Follow up with your primary care doctor 7-10 days after discharge. 10. Contact [facility] with any questions, . Discharge Disposition: HOME WITH HOME HEALTH SERVICES
[2018-06-10] MEDS: HYDROcodone/APAP 5-325MG 1 EACH TAB PO PRN (15:28)
== END 2018-06-10 15:40 | disposition home health service (06) | DRG 481 ==
LOC: EC 15:26 → 3SUR 17:03
PROVIDERS: ADMIT Orthopaedic Surgery; ATTEND Orthopaedic Surgery
PROC: 0QS704Z Reposition Left Upper Femur with Internal Fixation Device, Open Approach (ICD-10-PCS; principal; 2018-06-07)
DX: S72.142A Displaced intertrochanteric fracture of left femur, initial encounter for closed fracture (principal); D62 Acute posthemorrhagic anemia; I10 Essential (primary) hypertension; W01.0XXA Fall on same level from slipping, tripping and stumbling without subsequent striking against object, initial encounter; Z79.82 Long term (current) use of aspirin; Z86.011 Personal history of benign neoplasm of the brain; Z90.49 Acquired absence of other specified parts of digestive tract; Z79.899 Other long term (current) drug therapy
CPT/HCPCS: 36415; 51702; 73502; 80053; 85025; 85610; 85730; 93005; 96360; 99284